=== PATIENT | male | born 1990 | race African-American/Black ===

== ENCOUNTER 2023-12-22 01:33 | Observation (INO) | payer OTHER ==
[~2023-12-22] VITALS: Ht 175.3 cm; Wt 79.3 kg
[2023-12-22] VITALS (14 sets, daily range): BP systolic 93–127; BP diastolic 42–90
[2023-12-22 02:46] LABS: BASO% 0.2 % (0-3); EOS% 0.4 % (0-8); HEMATOCRIT 41.5 % (39.0-50.0); IMMATURE GRANULOCYTES 0.2 % (0.0-5.0); LYMPH% 9.1 % (15-41); MEAN CELL VOLUME 88.7 fL CALC (80.0-100.0); MEAN CORPUSCULAR HGB 29.9 pG CALC (26.0-32.0); MEAN CORPUSCULAR HGB CONC 33.7 g/dL CAL (32.0-36.0); MONO% 6.1 % (2-13); NEUT# 11.09 thou/uL (1.82-7.42); RED BLOOD COUNT 4.68 mill/uL (4.70-6.10)
[2023-12-22 02:53] LABS: ALBUMIN 4.6 g/dL (3.2-5.0); ALKALINE PHOSPHATASE 62 u/l (38-126); ANION GAP 17 (6-22 (CALC)); BILIRUBIN, TOTAL 0.5 mg/dL (0.2-1.3); BUN 19 mg/dL (9-20); BUN/CREATININE RATIO 15 (12-20 (CALC)); CARBON DIOXIDE 21 mmol/l (22-30); CHLORIDE 108 mmol/l (95-108); CREATININE 1.3 mg/dL (0.7-1.3); GFR FOR AFR.AMER. > 60 ML/MIN (>=60 (CALC)); GFR OTHER RACES > 60 ML/MIN (>=60 (CALC)); MAGNESIUM 2.1 mg/dL (1.6-2.3); POTASSIUM 4.2 mmol/l (3.5-5.1); SGOT/AST 55 u/l (17-59); SODIUM 142 mmol/l (137-146); TOTAL PROTEIN 7.1 g/dL (6.3-8.2)
[2023-12-22 02:55] LABS: URINE BILIRUBIN - DIPSTICK Negative (NEGATIVE); URINE BLOOD DIPSTICK Small (NEGATIVE); URINE GLUCOSE - DIPSTICK Negative (NEGATIVE); URINE KETONE Negative (NEGATIVE); URINE LEUK ESTERASE Negative (NEGATIVE); URINE NITRITE - DIPSTICK Negative (Negative); URINE PROTEIN - DIPSTICK 100 mg/dL (NEG-TRACE); URINE SPECIFIC GRAVITY >=1.030; URINE UROBILINOGEN - DIPSTICK 0.2 E.U./dL (0.2)
[2023-12-22 02:56] LABS: URINE COLOR Yellow
[2023-12-22 03:00] LABS: CPK 3052 u/l (55-170)
[2023-12-22 03:07] LABS: URINE EPITHELIAL CELLS FEW EPI/hpf (0-FEW)
[2023-12-22 03:11] LABS: URINE BACTERIA FEW hpf; URINE FINE GRAN CAST FEW lpf; URINE MUCUS FEW hpf (NONE-FEW)
[2023-12-22 03:12] LABS: URINE COARSE GRANULAR CAST MODERATE lpf
[2023-12-22 06:30] LABS: BASO% 0.1 % (0-3); EOS% 0.1 % (0-8); HEMATOCRIT 36.3 % (39.0-50.0); HEMOGLOBIN 12.1 g/dl (14.0-18.0); IMMATURE GRANULOCYTES 0.2 % (0.0-5.0); MEAN CELL VOLUME 87.9 fL CALC (80.0-100.0); MEAN CORPUSCULAR HGB 29.3 pG CALC (26.0-32.0); MEAN CORPUSCULAR HGB CONC 33.3 g/dL CAL (32.0-36.0); MONO% 5.1 % (2-13); NEUT# 9.7 thou/uL (1.82-7.42); NEUT% 83.5 % (42-76); RED BLOOD COUNT 4.13 mill/uL (4.70-6.10); RED CELL DISTRI WIDTH 12.1 % (11.5-15.5)
[2023-12-22 09:11] LABS: ALKALINE PHOSPHATASE 51 u/l (38-126); ANION GAP 8 (6-22 (CALC)); BILIRUBIN, TOTAL 0.4 mg/dL (0.2-1.3); BUN 16 mg/dL (9-20); BUN/CREATININE RATIO 15 (12-20 (CALC)); CARBON DIOXIDE 23 mmol/l (22-30); CHLORIDE 112 mmol/l (95-108); CREATININE 1.1 mg/dL (0.7-1.3); GFR FOR AFR.AMER. > 60 ML/MIN (>=60 (CALC)); GFR OTHER RACES > 60 ML/MIN (>=60 (CALC)); MAGNESIUM 1.9 mg/dL (1.6-2.3); POTASSIUM 4.1 mmol/l (3.5-5.1); SGOT/AST 51 u/l (17-59); SODIUM 139 mmol/l (137-146)
[2023-12-22 09:55] LABS: ALBUMIN 3.4 g/dL (3.2-5.0); TOTAL PROTEIN 5.6 g/dL (6.3-8.2)
[2023-12-23] VITALS (7 sets, daily range): BP systolic 102–131; BP diastolic 41–79
[2023-12-23 04:59] LABS: BASO% 0.3 % (0-3); EOS% 1.1 % (0-8); HEMATOCRIT 35.5 % (39.0-50.0); IMMATURE GRANULOCYTES 0.1 % (0.0-5.0); LYMPH% 33.2 % (15-41); MEAN CELL VOLUME 88.3 fL CALC (80.0-100.0); MEAN CORPUSCULAR HGB 29.9 pG CALC (26.0-32.0); MEAN CORPUSCULAR HGB CONC 33.8 g/dL CAL (32.0-36.0); MONO% 7.2 % (2-13); NEUT# 4.12 thou/uL (1.82-7.42); NEUT% 58.1 % (42-76); RED BLOOD COUNT 4.02 mill/uL (4.70-6.10); RED CELL DISTRI WIDTH 12.4 % (11.5-15.5)
[2023-12-23 05:18] LABS: ANION GAP 8 (6-22 (CALC)); BUN 12 mg/dL (9-20); BUN/CREATININE RATIO 11 (12-20 (CALC)); CARBON DIOXIDE 21 mmol/l (22-30); CHLORIDE 114 mmol/l (95-108); CREATININE 1.1 mg/dL (0.7-1.3); GFR FOR AFR.AMER. > 60 ML/MIN (>=60 (CALC)); GFR OTHER RACES > 60 ML/MIN (>=60 (CALC)); POTASSIUM 4.1 mmol/l (3.5-5.1); SODIUM 139 mmol/l (137-146)
[2023-12-23 05:36] LABS: CPK 4052 u/l (55-170)
[2023-12-24 00:07] VITALS: BP 130/62
[2023-12-24 04:51] VITALS: BP 116/56
[2023-12-24 06:13] LABS: HEMATOCRIT 35.6 % (39.0-50.0); HEMOGLOBIN 12.2 g/dl (14.0-18.0); MEAN CELL VOLUME 87.3 fL CALC (80.0-100.0); MEAN CORPUSCULAR HGB 29.9 pG CALC (26.0-32.0); MEAN CORPUSCULAR HGB CONC 34.3 g/dL CAL (32.0-36.0); RED BLOOD COUNT 4.08 mill/uL (4.70-6.10); RED CELL DISTRI WIDTH 12.1 % (11.5-15.5)
[2023-12-24 06:15] VITALS: BP 132/78
[2023-12-24 06:15] LABS: ANION GAP 7 (6-22 (CALC)); BUN 8 mg/dL (9-20); BUN/CREATININE RATIO 8 (12-20 (CALC)); CARBON DIOXIDE 22 mmol/l (22-30); CHLORIDE 114 mmol/l (95-108); GFR FOR AFR.AMER. > 60 ML/MIN (>=60 (CALC)); GFR OTHER RACES > 60 ML/MIN (>=60 (CALC)); POTASSIUM 4.1 mmol/l (3.5-5.1); SODIUM 138 mmol/l (137-146)
[2023-12-24 06:24] LABS: CPK 2277 u/l (55-170)
[2023-12-24] MEDS ORDERED: CETIRIZINE10 MG PO (09:01)
[2023-12-24 10:19] VITALS: BP 127/79
[2023-12-24 11:09] VITALS: BP 127/79
== END 2023-12-24 12:57 | DRG 918 ==
LOC: ED 01:33 → ED-I 01:59 → ED 04:01 → MS2 04:02
PROVIDERS: Internal Medicine; Student in an Organized Health Care Education/Training Program; ADMIT Student in an Organized Health Care Education/Training Program; ATTEND Student in an Organized Health Care Education/Training Program
DX: T50.901A Poisoning by unspecified drugs, medicaments and biological substances, accidental (unintentional), initial encounter (principal); M62.82 Rhabdomyolysis; R11.2 Nausea with vomiting, unspecified; R00.1 Bradycardia, unspecified; Y92.149 Unspecified place in prison as the place of occurrence of the external cause; M25.432 Effusion, left wrist; M25.431 Effusion, right wrist